=== PATIENT | female | born 1975 | race Caucasian/White ===

== ENCOUNTER → 2024-02-09 | Outpatient (CLI) | payer MEDICARE ==
[~2024-02-09] MED LIST: ADDERALL20 MG PO; AMOXICILLIN 8751 TAB PO; DEPAKOTE ER 50500 MG PO; DITROPAN 5MG TAB5 MG PO; FOLIC ACID 11 MG/TA1 PO; HALDOL 5MG T5 MG/TAB PO; KLONOPIN 1MG1 MG PO; NORVASC 5MG5 MG/TAB PO; PRIL40 PO; SYNTHROID 0.10.15 MG PO; SYNTHROID PO; ZOLOFT 100MG100 MG PO; ZYPREXA 5MG5 MG PO; ZYPREXA15 MG PO
== END ==
LOC: COL.CARD 11:35
DX: F31.13 Bipolar disorder, current episode manic without psychotic features, severe (principal)